=== PATIENT | female | born 1990 | race African-American/Black ===

== ENCOUNTER 2022-10-30 18:36 | Emergency (ER) | payer BC ==
[~2022-10-30] VITALS: Ht 172.7 cm; Wt 77.0 kg
[2022-10-30] MEDS ORDERED: SODIUM CHLORIDE 0.9% 1,000 ML IV ONE (20:15)
[2022-10-30 20:40] LABS: BASOPHILS % 0.7 % (0.0-2.0); EOSINOPHILS % 1.1 % (0.0-5.0); HEMATOCRIT. 38.8 % (36.0-48.0); HEMOGLOBIN. 12.7 g/dL (12.0-16.0); LYMPHOCYTES % 31.5 % (20.0-50.0); MEAN CORPUSCULAR HEMOGLOBIN 26.3 pg (28.0-32.0); MEAN CORPUSCULAR VOLUME 80.5 fL (81.0-99.0); MEAN PLATELET VOLUME 8.9 fl (7.4-10.4); MONOCYTES % 7.8 % (2.0-8.0); NEUTROPHILS % 58.9 % (40.0-76.0); PLATELET 211 x1000/uL (130-400); RED BLOOD CELL COUNT 4.82 mill/uL (4.2-5.4); RED CELL DISTRIBUTION WIDTH 14.8 % (11.6-14.6)
[2022-10-30 20:45] LABS: CHLORIDE 105 mEq/L (98-107)
[2022-10-30 21:01] LABS: HCG SCREEN NEGATIVE
[2022-10-30 22:30] VITALS: BP 129/89
== END 2022-10-31 00:36 | disposition home or self-care (01) ==
LOC: ER 18:36
DX: R42 Dizziness and giddiness (principal); F41.9 Anxiety disorder, unspecified
CPT/HCPCS: 36415; 80053; 84703; 85025; 93005; 96360; 96361; 99284; J7030